=== PATIENT | male | born 1950 | race Caucasian/White ===

== ENCOUNTER → 2018-12-19 | Outpatient (CLI) | payer OTHER ==
--- NOTE | 2018-12-19 13:33 | 2DMMODE ---
[facility] [employer] [address] 2 D/M-MODE ECHOCARDIOGRAM Name: LANETTEAGUSELLIOT MCNEIL Room #: REG [facility]#: [id number] ������������� Admission: 12/19/18 ������������� Attend Phys: Flash Ho Discharge: ��� ������������� ��� Date of : 54 Date of Service: 12/19/18 1333 �� Report #: [id number] �������� ��������������������������������������������[id number] THIS REPORT FOR: //name// APPROVED REPORT Study performed: 12/19/2018 12:54:40 EXAM: Comprehensive 2D, Doppler, and color-flow Echocardiogram Patient Location: Echo lab Status: routine BSA: 2.01 HR: 60 bpm BP: 148/75 mmHg Rhythm: Pacemaker Other Information Study Quality: Good Indications Pacemaker 2D Dimensions RVDd: 38.96 mm IVSd: 12.32 (7-11mm) LVOT Diam: 19.67 (18-24mm) LVDd: 41.11 mm PWd: 10.66 (7-11mm) Ascending Ao: 31.76 (22-36mm) LVDs: 28.80 (25-40mm) Aortic Root: 29.63 mm IVC: 18.00 mm Volumes Left Atrial Volume (Systole) Single Plane 4CH: 19.76 mL Single Plane 2CH: 34.62 mL LA ESV Index: 16.00 mL/m2 Aortic Valve AoV Peak Brennen.: 1.00 m/s AO Peak Gr.: 3.98 mmHg LVOT Max P.53 mmHg LVOT Max V: 0.94 m/s POLLY Vmax: 2.86 cm2 Mitral Valve E/A Ratio: 1.2 MV Decel. Time: 122.78 ms MV E Max Brennen.: 0.67 m/s [facility] [address] [place] [address] 2 D/M-MODE ECHOCARDIOGRAM Name: ELLIOT PRICE Room #: [facility]#: [id number] ������������� Admission: 12/19/18 ������������� Attend Phys: Flash Ho Discharge: ��� ������������� ��� Date of : 54 Date of Service: 12/19/18 1333 �� Report #: [id number] �������� ��������������������������������������������[id number] MV A Brennen.: 0.57 m/s MV PHT: 35.61 ms IVRT: 145.33 ms Pulmonary Valve PV Peak Brennen.: 0.83 m/s PV Peak Gr.: 2.78 mmHg Pulmonary Vein P Vein S: 0.38 m/s P Vein A: 0.19 m/s P Vein D: 0.28 m/s P Vein A Dur.: 134.9 msec P Vein S/D Ratio: 1.36 Tricuspid Valve TR Peak Brennen.: 2.31 m/s RAP Estimate: 5.00 mmHg TR Peak Gr.: 21.42 mmHg PA Pressure: 26.00 mmHg Left Ventricle The left ventricle is normal size. There is normal left ventricular wall thickness. The left ventricular systolic function is normal. The left ventricular ejection fraction is within the normal range. LVEF is 55-60%. The left ventricular diastolic function is normal. Right Ventricle Right ventricle is at the upper limits of normal. The right ventricular systolic function is normal. Pacemaker lead is present in the right ventricle. Atria The left atrium size is normal. Right atrium is mildly dilated. A pacemaker is seen in the right atrium consistent with history. Aortic Valve The aortic valve is normal in structure. No aortic regurgitation is present. There is no aortic valvular stenosis. Mitral Valve The mitral valve is normal in structure. Trace to mild mitral regurgitation. No evidence of mitral valve stenosis. Tricuspid Valve The tricuspid valve is normal in structure. Mild to moderate tricuspid regurgitation. PAP is estimated at 26 mmHg. Pulmonic Valve [address] [address] 2 D/M-MODE ECHOCARDIOGRAM Name: ALBERTELLIOT Room #: REG [facility]#: [id number] ������������� Admission: 12/19/18 ������������� Attend Phys: Flash [facility] Discharge: ��� ������������� ��� Date of : 54 Date of Service: 12/19/18 1333 �� Report #: [id number] �������� ��������������������������������������������[id number] The pulmonary valve is normal in structure. There is no pulmonic valvular regurgitation. Great Vessels The aortic root is normal in size. The ascending aorta is normal in size. IVC is normal in size and collapses >50% with inspiration. Pericardium There is no pericardial effusion. <Conclusion> The left ventricle is normal size. LVEF is 55-60%. Right ventricle is at the upper limits of normal. Pacemaker lead is present in the right ventricle. Right atrium is mildly dilated. A pacemaker is seen in the right atrium consistent with history. No aortic regurgitation is present. The mitral valve is normal in structure. Trace to mild mitral regurgitation. The tricuspid valve is normal in structure. Mild to moderate tricuspid regurgitation. PAP is estimated at 26 mmHg. The pulmonary valve is normal in structure. There is no pericardial effusion. ��������������������������������������������� <ELECTRONICALLY SIGNED> ���������������������������������������� By: Ankit Peguero MD ��������������������������������������������� 12/19/18 1333 1333 1333 Ankit Peguero MD /INF
== END ==
LOC: CV 10:49
DX: Z48.812 Encounter for surgical aftercare following surgery on the circulatory system (principal); I08.1 Rheumatic disorders of both mitral and tricuspid valves; Z95.0 Presence of cardiac pacemaker

== ENCOUNTER → 2021-01-05 | Outpatient (CLI) | payer OTHER | LOC: SJCVCIMAG 09:08 | PROVIDERS: ATTEND Internal Medicine Cardiovascular Disease | DX: I35.1 Nonrheumatic aortic (valve) insufficiency (principal); I44.2 Atrioventricular block, complete; Z95.0 Presence of cardiac pacemaker; Z79.899 Other long term (current) drug therapy; Z82.49 Family history of ischemic heart disease and other diseases of the circulatory system ==